=== PATIENT | female | born 1935 | race Caucasian/White ===

== ENCOUNTER → 2016-09-15 | Outpatient (CLI) | payer OTHER ==
[~2016-09-15] MED LIST: ATENOLOL; ATENOLOL50 MG PO; BACLOFEN5 GM PO; BONIVA150 MG PO; CELEXA20 MG PO; COUMADIN5 MG PO; CRESTOR40 MG PO; DIGITEK125 MC1 PO; FENOFIBRATE54 MG PO; GLUCOTROL XL PO; LANOXIN125 MCG PO; LASIX20 MG PO; LEVOXYL0.137 MG PO; LEVOXYL125 MCG PO; LISINOPRIL10 MG PO; MACROBID100 M1 PO; METFORMIN HCL500 M1 PO; MIRALAX119 GM PO; NEURONTIN100 MG PO; NITROSTAT0.4 MG SL; NORVASC; NORVASC PO; OXYCODONE HCL15 MG PO; OXYCODONE15 MG PO; PERCOCET5/325 PO; PYRIDIUM PO; SYNTHROID; UNIVASC7.5 MG; VICODIN 5/500 T1 TAB; WARFARIN SODIUM4 M1 PO; XARELTO20 MG PO; ZANTAC150 MG PO; ZESTRIL40 MG PO
--- NOTE | ~2016-09-15 | US77 ---
[facility] A Service of [facility] & [facility] RADIOLOGY TEXT RESULTS PATIENT: THIERRY ROWELL LOCATION: [facility] : 33 UNIT #: [id number] AGE: [address]: Shelton Fitzgerald MD SEX: F ORDER DR: [id number] [facility] [address] [place], [place] [address] [id number] O MR#: [id number] Acc #: [id number] NAME: THIERRY ROWELL : 1935 SEX: F STUDY DATE/TIME: 09/15/2016 13:18 UNIT: [facility] ROOM: STUDY DESCRIPTION: US Kidney Bilateral Complete Attending Physician: Shelton Fitzgerald M.D. Referring Physician: Shelton Fitzgerald M.D. Ordering Physician: Shelton Fitzgerald M.D. Primary Care Physician: Kami Nugent M.D. MEDICAL IMAGING REPORT This report is preliminary unless electronic signature is present EXAM Renal ultrasound complete, 09/15/2016 HISTORY Followup kidney stones. Right ureteral stent placed recently and removed 2 weeks ago. Follow-up. FINDINGS The right kidney measures 9.1 cm while the left kidney measures 9.7 cm in longitudinal dimensions. There is no evidence of hydronephrosis. There are multiple nonobstructing stones in the right kidney. No cystic or solid mass lesions were seen on either kidney. There is normal renal cortical echogenicity. Images of the bladder are normal. IMPRESSION 1. Multiple nonobstructing right renal stones. Otherwise negative renal ultrasound. 2. Images of the bladder are normal. Dictated by... Manuel St M.D. THIS IS AN ELECTRONICALLY VERIFIED REPORT Manuel tS M.D. at 09/17/2016 8:16 AM LIAM/mary TD: 09/15/2016 15:41 JOB #: [id number] MEDICAL IMAGING REPORT Page 1 of 1 COPY
[2016-09-15 14:18] LABS: CREATININE SERUM 1.3 mg/dL (0.6-1.4); GLOM FILT RATE Estimated 38.2 mL/min (>60)
== END | disposition home or self-care (01) ==
LOC: CGUS 12:45
PROVIDERS: Urology
DX: N20.0 Calculus of kidney (principal)
CPT/HCPCS: 36415; 76770; 82565; 84520

== ENCOUNTER → 2016-10-16 | Outpatient (CLI) | payer OTHER ==
[2016-10-16 12:20] LABS: HEMATOCRIT 36.5 % (35.0-45.0); HEMOGLOBIN 11.8 gm/dL (12.0-16.0); MEAN CELL VOLUME 90.4 FL (83-96); MEAN CORPUSCULAR HEMOGLOBIN 29.1 PG (28-34); MEAN CORPUSCULAR HGB CONC 32.2 g/dL (30-36); MEAN PLATELET VOLUME 9.5 FL (6.5-11.5); RED BLOOD COUNT 4.04 X10e (3.90-5.30); RED CELL DISTRIBUTION WIDTH 14.8 % (11.0-15.5); WHITE BLOOD COUNT 5.1 X10e3 (4.0-10.5)
[2016-10-16 13:02] LABS: BUN/CREATININE RATIO 17.5; CALCIUM SERUM 9.6 mg/dL (8.4-10.2); CREATININE SERUM 1.2 mg/dL (0.6-1.4); GLOM FILT RATE Estimated 42.1 mL/min (>60); POTASSIUM 4.6 mmol/L (3.5-5.1)
== END | disposition home or self-care (01) ==
LOC: CLAB 11:30
PROVIDERS: Internal Medicine Nephrology
DX: I12.9 Hypertensive chronic kidney disease with stage 1 through stage 4 chronic kidney disease, or unspecified chronic kidney disease (principal); N18.3 Chronic kidney disease, stage 3 (moderate)
CPT/HCPCS: 80048; 85027